=== PATIENT | female | born 1995 ===

== ENCOUNTER 2016-11-02 12:20 | Inpatient (IN) | payer MEDICAID, OTHER ==
--- NOTE | 2016-11-02 12:33 | C.PDOC ---
History Of Present Illness Patient is a 21 y/o F with hx of bipolar, on no medication presents to ED with complaints of depression. 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 She has these recurring thoughts but states "I don't really want to hurt myself." Denies SI, HI, auditory or visual hallucinations. No somatic complaints. Time Seen by Provider: 11/02/16 12:30 Chief Complaint (Nursing): Psychiatric Evaluation History Per: Patient History/Exam Limitations: no limitations Onset/Duration Of Symptoms: Days, Intermittent Episodes Current Symptoms Are (Timing): Still Present Modifying Factor(s): None Severity: Moderate Associated Symptoms: Depression Involuntary Hold By: None Recent travel outside of the [place]: No Past Medical History Reviewed: Historical Data, Nursing Documentation, Vital Signs Vital Signs: Last Vital Signs Temp 98.3 F 11/02/16 12:28 Pulse 58 L 11/02/16 12:28 Resp 16 11/02/16 12:28 BP 128/85 11/02/16 12:28 Pulse Ox 99 11/02/16 12:28 Family History: States: Unknown Family Hx Review Of Systems Except As Marked, All Systems Reviewed And Found Negative. Psych: Positive for: Depression, Other (no hallucinations). Negative for: Suicidal ideation Physical Exam - Physical Exam Appears: Non-toxic, No Acute Distress Skin: Warm, Dry, No Rash Head: Atraumatic, Normacephalic Chest: Symmetrical Cardiovascular: Rhythm Regular, No Murmur Respiratory: Normal Breath Sounds, No Rales, No Rhonchi, No Wheezing Neurological/Psych: Oriented x3, Normal Speech, Normal Cognition ED Course And Treatment - Laboratory Results Result Diagrams: 11/02/16 13:08 11/02/16 13:08 Medical Decision Making Medical Decision Making: Plan: medical clearance, CRISIS evaluation 1:19PM Poc negative. Cxray negative. EKG shows sinus bradycardia at 59bpm with normal intervals and no st changes 2:29PM Labs reviewed. patient medically cleared. Patient accepted by Dr. Guerrier for admission Disposition - Disposition Disposition: HOSPITALIZED Disposition Time: 14:47 Condition: FAIR - Clinical Impression Clinical Impression: Moderate major depression, single episode, Manic bipolar I disorder - Scribe Statement The provider has reviewed the documentation as recorded by the Salvador Hatch Provider Attestation: All medical record entries made by the Krystynaibluis were at my direction and personally dictated by me. I have reviewed the chart and agree that the record accurately reflects my personal performance of the history, physical exam, medical decision making, and the department course for this patient. I have also personally directed, reviewed, and agree with the discharge instructions and disposition.
[2016-11-02 12:34] VITALS: O2SAT 99
[2016-11-02 13:14] LABS: BASO # 0.1 K/uL (0.0-0.2); BASO % 1.1 % (0.0-2.0); EOS # 0.1 K/uL (0.0-0.7); EOS % 0.8 % (0.0-4.0); HEMOGLOBIN 14.4 g/dL (11.0-16.0); LYMPH # 1.8 K/uL (1.0-4.3); LYMPH % 16.5 % (20.0-40.0); MEAN CELL VOLUME 87.5 fL (81.0-99.0); MEAN CORPUSCULAR HEMOGLOBIN 29.6 pg (27.0-31.0); MEAN CORPUSCULAR HGB CONC 33.8 g/dL (33.0-37.0); MONO # 0.8 K/uL (0.0-0.8); MONO % 7.2 % (0.0-10.0); NEUT % 74.4 % (50.0-75.0); RBC 4.87 Mil/uL (3.80-5.20); RED CELL DISTRIBUTION WIDTH 13.3 % (11.5-14.5); WHITE BLOOD COUNT 10.8 K/uL (4.8-10.8)
--- NOTE | 2016-11-02 13:17 | RAD ---
HISTORY: psych COMPARISON: No prior. FINDINGS: LUNGS: Suspect minor bibasilar atelectasis PLEURA: No significant pleural effusion identified, no pneumothorax apparent. CARDIOVASCULAR: Normal. OSSEOUS STRUCTURES: No significant abnormalities. VISUALIZED UPPER ABDOMEN: Normal. OTHER FINDINGS: None. IMPRESSION: Suspect minor bibasilar atelectasis
[2016-11-02 13:18] LABS: SQUAMOUS EPITHIAL 4 /hpf (0-5); URINE BILIRUBIN NEGATIVE (NEGATIVE); URINE BLOOD NEGATIVE (NEGATIVE); URINE CLARITY Clear (Clear); URINE COLOR Yellow (YELLOW); URINE GLUCOSE (UA) NORMAL (Normal); URINE LEUKOCYTE ESTERASE NEG Leu/uL (Negative); URINE NITRATE NEGATIVE (NEGATIVE); URINE PROTEIN NEGATIVE (NEGATIVE); URINE UROBILINOGEN NORMAL mg/dL (0.2-1.0)
[2016-11-02 13:25] LABS: ALB/GLOB RATIO 1.2 (1.0-2.1); AST/SGOT 47 U/L (14-36); BLOOD UREA NITROGEN 5 mg/dL (7-17); GFR AFRICAN-AMERICAN > 60; GFR NON-AFRICAN AMERICAN > 60
[2016-11-02 13:26] LABS: ALT/SGPT 41 U/L (9-52); CALCIUM 9.1 mg/dl (8.6-10.4)
[2016-11-02 13:34] LABS: BARBITURATES, UR NEGATIVE (NEGATIVE); BENZODIAZEPINES, UR NEGATIVE (NEGATIVE)
[2016-11-02 13:37] LABS: OPIATES, UR NEGATIVE (NEGATIVE)
[2016-11-02 13:38] LABS: PHENCYCLIDINE, UR NEGATIVE (NEGATIVE)
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
--- NOTE | 2016-11-03 12:59 | CARD ---
APPROVED REPORT EKG Measurement Heart [id number] <Conclusion> Sinus bradycardia with sinus arrhythmia Otherwise normal ECG
[2016-11-03 16:50] LABS: HEMOGLOBIN 14.4 g/dL (11.0-16.0); MEAN CELL VOLUME 87.7 fL (81.0-99.0); MEAN CORPUSCULAR HEMOGLOBIN 29.6 pg (27.0-31.0); MEAN CORPUSCULAR HGB CONC 33.8 g/dL (33.0-37.0); MEAN PLATELET VOLUME 9.2 fL (7.2-11.7); RBC 4.85 Mil/uL (3.80-5.20); RED CELL DISTRIBUTION WIDTH 13.7 % (11.5-14.5); WHITE BLOOD COUNT 11.2 K/uL (4.8-10.8)
[2016-11-03 16:58] LABS: ALBUMIN 4.1 g/dL (3.5-5.0)
[2016-11-03 17:00] LABS: GFR AFRICAN-AMERICAN > 60; GFR NON-AFRICAN AMERICAN > 60
[2016-11-03 17:01] LABS: ALB/GLOB RATIO 1.2 (1.0-2.1); ALT/SGPT 51 U/L (9-52); AST/SGOT 56 U/L (14-36); BLOOD UREA NITROGEN 8 mg/dL (7-17); CALCIUM 8.9 mg/dl (8.6-10.4)
--- NOTE | 2016-11-04 10:25 | PCM.PYCHPN ---
Psychiatric Progress Note - Psychiatric Progress Note Patient seen today, length of contact: 15 min Patient Chief Complaint: I was feeling depressed and suicidal.' Problems Identified/Issues Discussed: Patient seen and evaluated, chart reviewed and discussed with the nurse. Patient reports improvement in her mood but remained isolated and withdrawn. Patient reports improvement in her sleep and appetite, but reports of feeling little dizzy in the morning. She reports that medications are working. She reports improvement in anxiety and agitation. She is compliant with the medications and denies any side effects. Supportive therapy and psychoeducation were given. Medication Change: No Medical Record Reviewed: Yes Mental Status Examination - Cognitive Function Orientation: Person, Place, Situation, Time Memory: Intact Attention: WNL Concentration: Poor Association: WNL Fund of Knowledge: Poor - Mood Mood: Depressed, Anxious - Affect Affect: Constricted, Depressed - Speech Speech: Soft - Formal Thought Process Formal Thought Process: No Impairment - Suicidal Ideation Suicidal Ideation: No - Homicidal Ideation Homicidal Ideation: No Goal/Treatment Plan - Goal/Treatment Plan Need for Continued Stay: Discharge may exacerbated symptoms, Severe functional impairment Progress Toward Problem(s) and Goals/Treatment Plan: Bipolar 2 disorder, chronic major depressive episode CBT Psychoeducation Supportive therapy, group therapy, individual therapy Sertraline 50 mg PO Daily Trazodone 50 mg by mouth daily at bedtime Atarax 25 mg by mouth every 6 hours when necessary Cannabis use disorder mild CBT Psychoeducation Use [place] for abstinence - Smoking Cessation Smoking Cessation Initiated: No
--- NOTE | 2016-11-04 11:00 | PCM.BM ---
<Qi Guerrier - Last Filed: 11/04/16 10:59> - Diagnosis (1) Bipolar 2 disorder, major depressive episode Status: Acute Interventions: 11/04/16 11:00 attend groups, take meds - Milieu Protocol Milieu Narrative: Bipolar 2 disorder, chronic major depressive episode CBT Psychoeducation Supportive therapy, group therapy, individual therapy Sertraline 50 mg PO Daily Trazodone 50 mg by mouth daily at bedtime Cannabis use disorder mild CBT Psychoeducation Use [place] for abstinence Discharge/Continuing Care - Additional Comments Bipolar 2 disorder, chronic major depressive episode CBT Psychoeducation Supportive therapy, group therapy, individual therapy Sertraline 50 mg PO Daily Trazodone 50 mg by mouth daily at bedtime Cannabis use disorder mild CBT Psychoeducation Use [place] for abstinence - Treatment Team Participation Patient/Family/SO Statement: Bipolar 2 disorder, chronic major depressive episode CBT Psychoeducation Supportive therapy, group therapy, individual therapy Sertraline 50 mg PO Daily Trazodone 50 mg by mouth daily at bedtime Cannabis use disorder mild CBT Psychoeducation Use [place] for abstinence <Morenita Bass - Last Filed: 11/04/16 11:45> Treatment assets and liabiliti Patient Assests: cooperative, ADL independent, physically healthy, cognitively intact - Milieu Protocol Maintain good personal hygiene: daily Encourage regular showers Maintain personal safety: every shift Educate patient to report safety concerns to staff, every shift Monitor environment for contraband/sharps Medication safety: Monitor for expected outcome, potential side effects: every shift, Assess barriers to learning: every shift, Assess readiness for medication education: every shift <Kathie Poole - Last Filed: 11/05/16 11:52>
--- NOTE | 2016-11-05 10:25 | PCM.PYCHPN ---
Psychiatric Progress Note - Psychiatric Progress Note Patient seen today, length of contact: 16 min Patient Chief Complaint: "I was very stressed when I came but this has been like a mini-vacation that I really needed' Problems Identified/Issues Discussed: Patient seen and evaluated, chart reviewed and discussed with the nurse. Patient reports improvement in her mood. She is developing insight about why she becomes anxious or depressed. She states that she "realizes that my mother and boyfriend have been trying to help me, and I have been creating my own problems". She says her mother and boyfriend come to visit her every day and she has a very good support system. Patient reports improvement in her sleep and appetite. She reports that medications are working. She reports improvement in anxiety and agitation. She is compliant with the medications and denies any side effects Supportive therapy and psychoeducation were given. Medication Change: Yes Medical Record Reviewed: Yes Mental Status Examination - Cognitive Function Orientation: Person, Place, Situation, Time Memory: Intact Attention: WNL Concentration: Poor Association: WNL Fund of Knowledge: WNL - Mood Mood: Depressed, Anxious - Affect Affect: Constricted, Depressed - Speech Speech: Appropriate, Soft - Formal Thought Process Formal Thought Process: No Impairment - Suicidal Ideation Suicidal Ideation: No - Homicidal Ideation Homicidal Ideation: No Goal/Treatment Plan - Goal/Treatment Plan Need for Continued Stay: Discharge may exacerbated symptoms, Severe functional impairment Progress Toward Problem(s) and Goals/Treatment Plan: Bipolar 2 disorder, chronic major depressive episode CBT Psychoeducation Supportive therapy, group therapy, individual therapy Sertraline 50 mg PO Daily Trazodone 50 mg by mouth daily at bedtime Atarax 25 mg by mouth every 6 hours when necessary Cannabis use disorder mild CBT Psychoeducation Use [place] for abstinence Estimated Date of D/C: 11/06/16
[2016-11-06 07:45] VITALS: BP 103/65; PULSE 73; RESP 20; TEMP 97.2
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
== END 2016-11-06 11:25 | disposition home or self-care (01) | DRG 885 ==
LOC: C.ER 12:20 → C.9E 14:45 → C.5E 15:48
PROVIDERS: ADMIT Psychiatry & Neurology Psychiatry; ATTEND Psychiatry & Neurology Psychiatry
PROC: GZHZZZZ Group Psychotherapy (ICD-10-PCS; principal; 2016-11-02)
PROC: GZ58ZZZ Individual Psychotherapy, Cognitive-Behavioral (ICD-10-PCS; 2016-11-02)
PROC: GZ56ZZZ Individual Psychotherapy, Supportive (ICD-10-PCS; 2016-11-02)
DX: F31.81 Bipolar II disorder (principal); R45.851 Suicidal ideations; R00.1 Bradycardia, unspecified; F17.210 Nicotine dependence, cigarettes, uncomplicated; F12.90 Cannabis use, unspecified, uncomplicated; Z91.5 Personal history of self-harm